=== PATIENT | male | born 1955 | race Caucasian/White ===

== ENCOUNTER 2024-10-20 17:45 | Inpatient (IN) | payer MEDICARE, SELFPAY ==
[2024-10-20] VITALS (9 sets, daily range): BP systolic 116–158; BP diastolic 65–106; BMI 28.1
[2024-10-20 13:24] LABS: ALT (SGPT) 37 U/L (0-50); AST (SGOT) 43 U/L (17-59); Albumin 3.9 g/dl (3.5-5.0); Alkaline Phosphatase 86 U/L (38-126); Blood Urea Nitrogen 21 mg/dl (9-20); Calcium 9.1 mg/dl (8.4-10.2); Carbon Dioxide 28 mmol/L (22-30); Chloride 102 mmol/L (98-107); Glucose 110 mg/dl (70-99); Potassium 4.4 mmol/L (3.5-5.1); Sodium 137 mmol/L (135-145); Total Bilirubin 0.8 mg/dl (0.2-1.3); Total Protein 6.7 g/dl (6.3-8.2); eGFR 49.47
[2024-10-20 13:31] LABS: Hemoglobin 15.3 g/dL (13.0-18.0); Mean Corpuscular Hgb 29.8 pg (27.0-31.0); Mean Corpuscular Volume 87.5 fL (80.0-94.0); Mean Platelet Volume 10.3 fL (7.4-10.4); Platelet Count 190 10^3/uL (130-400); Red Blood Cell Count 5.14 10^6/uL (4.70-6.10); Red Cell Dist. Width 14.2 % (11.5-14.5); White Blood Cell Count 7.8 10^3/uL (4.8-10.8)
[2024-10-20 13:39] LABS: Troponin I 0.621 ng/ml
--- NOTE | 2024-10-20 13:41 | ED.GENMED ---
History of Present Illness
General
Chief Complaint: Heart Rate Problem
Source: patient
Exam Limitations: none
Time Seen by Provider: 10/20/24 13:23
Nursing documentation reviewed up to this point in time: agreed with
History of Present Illness
History of Present Illness:
Patient is a 69-year-old male with history of bypass surgery 2012 presents to the ER for evaluation. Patient reports over the past 2 weeks he has had a lot of' cold symptoms, nasal congestion is felt very tired and fatigued..' He was tested for
flu and COVID both of which were negative. He went to his family doctor today for evaluation. He was told his EKG was normal and he presented to the ER. He denies any chest pain now. He reports that when he walks up and down the steps sometimes
will get' a twinge of pain in his chest.' He however has no complaints now. He denies any shortness of breath. He was a patient of Dr. Sarah.
Pt did take his ASA today..
Review of Systems
Review of Systems
Allergies reviewed?: Yes
All Other Systems: ROS reviewed and negative except as documented in HPI and ROS
Constitutional: Reports fatigue
EENT: Reports no symptoms
Respiratory: Reports no symptoms
Cardiac: Reports palpitations
ABD/GI: Reports no symptoms
Musculoskeletal: Reports no symptoms
Skin: Reports no symptoms
Neurological: Reports no symptoms
Psychiatric: Reports no symptoms
Phy Exam
General Physical Exam
General Presentation: no apparent distress
General age: appears stated age
General Skin: warm and dry
General Habitus: normal
General Mental: alert
General Hydration: appears well hydrated
Cardiovascular Exam
Cardiovascular Exam: regular rate/rhythm, no murmur and normal peripheral pulses
Pulmonary Exam
Pulmonary Exam: lungs clear and no respiratory distress
Neurological Exam
Neurological Exam: alert and oriented x3
Musculoskeletal Exam
Musculoskeletal Exam: full ROM
Skin Exam
Skin Exam: normal color and warm/dry
Psychiatric Exam
Psychiatric Exam: normal mood/affect
Course
Orders/Labs/Results
Orders:
Orders
10/20/24 12:42
Electrocardiogram (*1) Urgent
Reason for Study: Chest Pain
EKG- Treatment ONCE
10/20/24 13:04
Complete Blood Count/With Diff Urgent
Comprehensive Metabolic Panel Urgent
Troponin I Urgent
10/20/24 16:06
Chest [CR Chest - 2 Views ] Urgent
Comment:
Reason For Exam: chest pain
10/20/24 16:17
Heparin 4,000 units IV NOW STA
Heparin Protocol- PTT Orders As Directed
PTT per Heparin protocol: -Obtain CBC and baseline PTT - if not already collected.
-Obtain PTT 6 hours from start of infusion. Then, every 6 hours until 2 consecutive
PTT's are therapeutic. Then, PTT Daily.
-With each rate change, obtain PTT every 6 hours until 2 consecutive PTT's are
therapeutic. Then, PTT Daily.
Notify MD As Directed
Notify physician if: PTT is greater than or equal to 200.
10/20/24 16:30
Heparin 36399 Units/250 ml 25,000 units in 250 ml IV PER PROTOCOL
Weight to be used for heparin protocol in kilograms (kg):: 94
Protocol:: Cardiac Tx/Acute Coronary
PTT Goal Range to be used:: PTT 73 to 111 seconds
Order type:: Initial
INITIAL Infusion Dose (UNITS/KG/hr) & then follow protocol:: 12 units/kg/hr
Infusion Dose in UNITS/hr & then follow protocol (UNITS/hr):: 1,000
INFUSION RATE in mL/hr & then follow protocol (mL/hr):: 10
PTT less than or equal to 64 seconds:: Increase rate by 200 units/hr (+ 2 mL/hr)
PTT 64.1 to 72.9 seconds:: Increase rate by 100 units/hr (+ 1 mL/hr)
PTT 73 to 111 seconds:: Target Range. No change in rate.
PTT 111.1 to 130.9 seconds:: Decrease rate by 100 units/hr (- 1 mL/hr)
PTT 131 to 199.9 seconds:: HOLD for 1 hr. Then decrease rate by 200 units/hr (- 2 mL/hr)
PTT greater than or equal to 200 seconds:: HOLD for 2 hrs & Notify Provider. Then decrease by 200 units/hr (-
2 mL/hr)
Lab follow-up:: Each change, PTT q6h until 2 consecutive are therapeutic. Then PTT
daily.
10/20/24 16:31
PTT Urgent
Comment: Obtain baseline before beginning heparin infusion if not already collected
10/20/24 17:08
Admit/Transfer Patient As Directed
Co-Sign Provider:
Level of Care: Inpatient admission
Assign to:: IVU
Physician / Group: Karla Wilson
Diagnosis: chest pain, VERONICA
Reason for Hospitalization: chest pain, VERONICA
Expected length of stay greater than two midnights?: Yes
ELOS- Estimated Length of Stay in days: 3
I certify the patient meets the requirements for IP care: Yes
PRN Pain Medication Management As Directed
May give lesser potent ordered pain med per pt: Yes
preference::
Protocol:: Medication orders for pain may be administered in a
manner that supports deferring to patient preference
when the pt is:
- Requesting an ordered lesser potent pain medication.
Least to most potent pain medications are defined
as: acetaminophen < NSAID < tramadol < opioids
(morphine, oxycodone, hydromorphone).
- Requesting a lesser dose of the same medication IF
ORDERED.
- Requesting a less intrusive route of administration
if both routes are prescribed by the provider (PO <
IV).
10/20/24 17:10
Code Status As Directed
Resuscitation Status: Full Code
10/20/24 18:00
0.9% Sodium Chloride 500 ml [Nss] 500 ml IV 80 mls/hr
10/20/24 19:00
EKG [Electrocardiogram (*1)] Routine
Reason for Study: CAD
Troponin I Q6H
10/20/24 22:53
PTT Urgent
10/21/24 01:00
Troponin I Q6H
10/21/24 06:00
EKG [Electrocardiogram (*1)] IN AM
Reason for Study: CAD
Echo 2D MMode Color/Doppler IN AM
Reason for Study: abnormal troponin
Comment: PLEASE DO FIRST IN AM
NPO
Allow oral meds: Yes
Allow clear liquids: No
BMP [Basic Metabolic Panel] IN AM
Cardiovascular Evaluation IN AM
Hgba1c [Glycohemoglobin (HgbA1c)] IN AM
10/22/24 06:00
Complete Blood Count/No Diff Q2D
Comment: Notify MD if platelet count is <130,000 or decreases by 50% from baseline
10/24/24 06:00
Complete Blood Count/No Diff Q2D
Comment: Notify MD if platelet count is <130,000 or decreases by 50% from baseline
10/26/24 06:00
Complete Blood Count/No Diff Q2D
Comment: Notify MD if platelet count is <130,000 or decreases by 50% from baseline
10/28/24 06:00
Complete Blood Count/No Diff Q2D
Comment: Notify MD if platelet count is <130,000 or decreases by 50% from baseline
10/30/24 06:00
Complete Blood Count/No Diff Q2D
Comment: Notify MD if platelet count is <130,000 or decreases by 50% from baseline
11/01/24 06:00
Complete Blood Count/No Diff Q2D
Comment: Notify MD if platelet count is <130,000 or decreases by 50% from baseline
11/03/24 06:00
Complete Blood Count/No Diff Q2D
Comment: Notify MD if platelet count is <130,000 or decreases by 50% from baseline
11/05/24 06:00
Complete Blood Count/No Diff Q2D
Comment: Notify MD if platelet count is <130,000 or decreases by 50% from baseline
Abnormal Lab Results
10/20/24
13:04
Absolute Monos (auto) 0.7 H 10^3/uL
(0.1-0.6)
Monocytes % 9.5 H %
(1.7-9.3)
BUN 21 H mg/dl
(9-20)
Creatinine 1.5 H mg/dL
(0.7-1.3)
Glucose 110 H mg/dl
(70-99)
Troponin I 0.621 H* ng/ml
10/20/24 13:04
10/20/24 13:04
Vital Signs
Initial and Last Documented VS:
Initial Vital Signs
Temp Pulse Resp BP Pulse Ox
97.4 F 79 18 158/100 97
10/20/24 12:44 10/20/24 12:44 10/20/24 12:44 10/20/24 12:44 10/20/24 12:44
Last Documented Vital Signs
Temp Pulse Resp BP Pulse Ox
97.4 F 88 19 144/82 99
10/20/24 12:44 10/20/24 17:15 10/20/24 17:15 10/20/24 17:00 10/20/24 17:15
MDM/Problems Addressed
Differential Diagnosis Includes:
Not limited to unstable angina, anemia
MDM/Problems Addressed:
Patient is a 69-year-old male with past with history of bypass in 2012 has presented to the ER complaining of fatigue intermittently over the past several weeks has had mild twinges of chest pain with walking. Patient was sent by his family doctor
for EKG changes and symptoms. Patient presents with elevated troponin though no chest pain here in the ER. He is vital signs are stable he is nontoxic he is asymptomatic here. Case discussed with cardiology who will evaluate patient will admit to
the hospital service
*Radiology
Radiology exam reviewed: radiology read reviewed
*Pulse Oximetry
Patient hypoxic: no
*EKG
Interpreted by ED Provider?: Yes
Interpretation: abnormal
Heart Rate: 77
Rate: normal
Rhythm: sinus and PVC's
QRS Pattern: normal QRS
Ischemia: non-specific ST changes
*Critical Care Note
Total Time (30-74mins, 75-104mins- exclusive of procedures): Not Applicable
Patient Management
Discussion with other providers: Blood Collector (DR Peña )
ED Attending Note
-
Portions of this chart may have been created with voice recognition software.� Occasional wrong word or��sound alike� substitutions may have occurred due to the inherent limitations of voice recognition software.
Discharge Plan
Departure
Patient Disposition: Admit
Date of Disposition: 10/20/24
Time of Disposition: 16:07
Admit to: Telemetry
Admit to doctor: hospitalist
Presentation/result/management discussed w/ accepting MD/DO: Hospitalist
Patient with high blood pressure during this ER visit?: Yes
Condition: Fair
Covid-19: Not Applicable
Discharge Problem:
Chest pain, Elevated troponin
Interventions
Interventions:
*Risk Screen - Suicide Last Done: 10/20/24 12:44
*General Assessment Last Done: 10/20/24 12:44
*Neglect/Abuse Screening Last Done: 10/20/24 12:44
*ED- Fall Risk Assessment Last Done: 10/20/24 12:54
*ED COVID-19 Vaccine History Last Done: 10/20/24 12:44
ED- Cardiac Assessment Last Done: 10/20/24 12:54
ED- Pulmonary Assessment Last Done: 10/20/24 12:54
[2024-10-20 14:15] LABS: % Basophils 0.5 % (0-2); % Eosinophils 1.9 % (0-6); % Immature Granulocytes 0.3 % (0-0.5); % Lymphocytes 26.6 % (20.5-51.1); % Monocytes 9.5 % (1.7-9.3); % Neutrophils 61.2 % (42.2-75.2); Absolute Eosinophils 0.2 10^3/uL (0-0.7); Absolute Lymphocytes 2.1 10^3/uL (1.2-3.4); Absolute Monocytes 0.7 10^3/uL (0.1-0.6); Absolute Neutrophils 4.8 10^3/uL (1.4-6.5); Nucleated Red Blood Cells % 0 % (-)
--- NOTE | 2024-10-20 16:18 | CON.CAR ---
Addendum entered and electronically signed by Gerardo Peña MD 10/20/24 17:21:
I saw and examined the patient.
The SPA TECHNICIAN's note was reviewed and I agree with the note.
Comment: 69 y/o male (former Dr. Sarah patient) with ICM EF 40-40% (meds limited my intolerances), CAD with hx CABG 2011 (OLEARY-LAD, VG-OM1-PDA, VG occluded cath 2015), dyslipidemia who complains of several weeks of feeling like he has head
congestion. It began in as a headache and then developed into sinus congestion with a postnasal drip and total body aches. It was not resolving so after having a negative COVID/flu combo test at home he sought care at his PCP who sent him in for
evaluation. In addition to the symptoms, it seems they were worried because he complained of an episode of palpitations overnight. He said this was reminiscent of his preoperative time. Prior to his. At that time though, he knew he was in
trouble and he does not feel as bad currently. He does have some exertional chest twinges at times. These have been more present recently with less exertion. He never has chest pain at rest. He does not take nitroglycerin. The palpitations he
had last night worse sudden onset fast and self resolving. He also has symptoms of what he knows are PVCs at times. We were called because initial troponin is 0.6. On exam he is well-appearing in no apparent distress. Lungs are clear to
auscultation bilaterally. He has a regular rate and rhythm with a normal S1-S2 no murmur rubs or gallops were appreciated. EKG shows normal sinus rhythm with LVH and strain pattern and PVCs in the pattern of bigeminy. Total history is somewhat
confusing. No strong complaints of unstable symptoms suggestive of ACS, but has initial troponin of 0.6 and a lot of ectopy with a report of significant palpitations overnight. Main complaint is of congestion and total body aches. He has
extensive multivessel coronary artery disease. I wonder if he has some sort of infectious etiology leading to a type II TN. However, it is difficult to make that determination at this point. Would be cautious and start a heparin drip. Will
arrange for an echocardiogram first thing in the morning and trend troponins. If troponins continue to rise, he develops any new symptoms or echocardiogram shows worsening cardiomyopathy would then recommend cardiac catheterization. Remainder of
workup per medicine regarding his congestion and sinus symptoms. We will keep him n.p.o. after midnight and add him to the tentative cath scheduled for tomorrow.
Original Note:
Consultation
Consultation Request
Date/Time Consultation Requested: 10/20/24 1415
Date/Time Consultation Performed: 10/20/24 1530
Requesting Provider: Liset Bañuelos NP
Performing Provider: Tanja WOLF for Dr. Peña
Reason for Consultation: abnormal troponin
Medical History
-
Chief Complaint: congestion, fatigue
History of Present Illness:
69 y/o male (former Dr. Sarah patient) with ICM EF 40-40% (meds limited my intolerances), CAD with hx CABG 2011 (OLEARY-LAD, VG-OM1-PDA, VG occluded cath 2015), dyslipidemia who is here for evaluation from his PCP office. Briefly, he has had
congestion since August. He has felt tired and with achy legs. Overnight, he had palpitations, which made him nervous since he felt that before bypass, so he took aspirin 650 mg early this AM prior to arrival here. He also woke up sweaty. He
recently had chills. He took an OTC covid/flu test on Friday, which was negative. He gets chest tightness with exertion only, which is chronic, but worsened recently. Still no CP with rest. He is in no distress at the time of my assessment. Trop is
0.621. EKG is abnormal, but similar to OP 2022 EKG to my review, just with PVC's now. He specifically denies SOB, but reports his breathing isn't completely normal either.
Past Medical History
Past Medical History: CAD, CHF and Hypercholesterolemia
Social History
Tobacco: Non-Smoker
Family History
Family History: CAD (dad)
Allergies / Home Medications
Allergy/AdvReac Type Severity Reaction Status Date / Time
naproxen Allergy Rash Verified 10/20/24 12:48
�Medication �Instructions �Recorded �Confirmed �Type
allopurinol 300 mg tablet 300 mg PO DAILY Gout 04/22/16 10/20/24 History
aspirin 81 mg chewable tablet 81 mg PO DAILY Blood clot 04/22/16 10/20/24 History
prevention/tx
cholecalciferol (vitamin D3) 25 1,000 unit PO DAILY Supplement 04/22/16 10/20/24 History
mcg (1,000 unit) capsule (Vitamin
D3)
coenzyme Q10 200 mg capsule (Co 200 mg PO DAILY Supplement 04/22/16 10/20/24 History
Q-10)
rosuvastatin 10 mg tablet 10 mg PO DAILY High cholesterol 11/16/22 10/20/24 History
ascorbic acid (vitamin C) 500 mg 500 mg PO BID 10/20/24 10/20/24 History
tablet (Vitamin C)
emtricitabine 200 mg-tenofovir 1 tab PO DAILY 10/20/24 10/20/24 History
alafenamide fumarate 25 mg tablet
(Descovy)
Review of Systems
-
History Source: Patient
All other systems: Negative unless noted
Constitutional: Chills
Respiratory: Trouble Breathing (breathing not baseline, but technically no SOB per patient) and Other (congestion)
Cardiac: Chest Pain, Diaphoresis and Palpitations
Physical Exam
Vital Signs
Temp Pulse Resp BP Pulse Ox
97.4 F 73 0 129/85 99
10/20/24 12:44 10/20/24 14:30 10/20/24 14:30 10/20/24 14:00 10/20/24 14:30
Lab Results
10/20/24 13:04
10/20/24 13:04
Troponin I 0.621 ng/ml H* 10/20/24 13:04
Physical Exam
General: Well Developed, Well Nourished and No Apparent Distress
HEENT: Normocephalic and Anicteric
Respiratory: Clear and Non Labored Respirations
Cardiac: Regular Rhythm
Musculoskeletal: No Edema
Skin: Warm
Neuro: AO x 3
Psych: Calm
Impression / Plan
-
Abnormal troponin:
-concern for NSTEMI, which is threat to life- will initiate IV heparin, which requires intensive monitoring
-He took full dose aspirin early this AM per patient
-check lipids, A1C
-otherwise, trend to peak, follow EKG's, and update echo
-likely cath tomorrow- plan to see in AM first
CAD with hx CABG:
-continue ASA, statin
-check lipids, A1C
ICM EF 40-45%:
-not on GDMT due to intolerances per chart
-reassess echo
VERONICA:
-repeat in AM- last OP creat that I saw was 1.3
Data:
Cath 04/2016: 1: Anterolateral and apical hypokinesis with EF 41% 2: Severe [place] double vessel CAD with patent OLEARY�LAD and occluded SVG�OM3�RPDA grafts 3. The severe circumflex disease would likely be amenable to stenting should the patient
developed progressive anginal symptoms. The territory supplied by the large OM3 is protected by right to left collaterals and the disease in the [place] RCA is mild. Accordingly, medical therapy is a reasonable approach at this time. Continue
aggressive risk factor modification efforts.
Echo 07/07/22: Mildly reduced left ventricular systolic function. Left ventricular ejection fraction is 40-45%. Moderate to severe inferolateral and apical hypokinesis. No significant valvular disease.
Data Reviewed
-
EKG: Tracing Personally Visualized and interpreted (SR with PVC's, otherwise T wave inversions noted similar to previous)
Radiology: Other (CXR ordered and pending)
Medical Tests (Nuc Med, Echo etc): Report Reviewed by me
Labs: Labs Reviewed by me
--- NOTE | 2024-10-20 16:25 | HPS.HSE ---
Family Physician
-
Family Physician: Abelardo Sunshine
Chief Complaint
-
chest pain
History of Present Illness
Patient is a 69-year-old male with past medical history significant for CAD, hyperlipidemia, and gout who present to [facility] ED for evaluation following EKG at primary care provider. Patient reports that back in August he started with
cold like symptoms (congestion and increased fatigue). Since symptoms still were lingering earlier this week he took home flu/covid test and both were negative. With continued symptoms he called and made appointment with primary care provider for
this morning. At primary care today for continued cold like symptoms and what he describes as 'twinges of pain' in chest with walking was found to have changes on EKG and referred to ED for further evaluation. He does report waking this morning with
significant diaphoresis. Patient denies fever, cough, shortness of breath, nausea, vomiting, constipation, diarrhea or urinary symptoms. Reports taking Descovy for prophylaxis for current sexual relations.
Medical History
Past Medical History
Past Medical History: Reports Other
Additional Past Medical History:
CAD
hyperlipidemia
gout
Past Surgical History: Reports Other
Additional Past Surgical History:
CABG (2011)
prostate biopsy
Social History
Tobacco: Non-smoker
Alcohol: Occasional (glass of wine weekly)
Drug: None
Family History
Family History: Not pertinent
Allergies / Home Medications
Allergies reflects when Allergies were last updated in [employer].
Home Medications with original date entered in [employer]
Allergy/Medication List:
Allergies
Allergy/AdvReac Type Severity Reaction Status Date / Time
naproxen Allergy Rash Verified 10/20/24 12:48
Home Medications
allopurinol 300 mg tablet 300 mg PO DAILY Gout 04/22/16
aspirin 81 mg chewable tablet 81 mg PO DAILY Blood clot prevention/tx 04/22/16
cholecalciferol (vitamin D3) 25 mcg (1,000 unit) capsule (Vitamin D3) 1,000 unit PO DAILY Supplement 04/22/16
coenzyme Q10 200 mg capsule (Co Q-10) 200 mg PO DAILY Supplement 04/22/16
rosuvastatin 10 mg tablet 10 mg PO DAILY High cholesterol 11/16/22
ascorbic acid (vitamin C) 500 mg tablet (Vitamin C) 500 mg PO BID 10/20/24
emtricitabine 200 mg-tenofovir alafenamide fumarate 25 mg tablet (Descovy) 1 tab PO DAILY 10/20/24
Review of Systems
-
History Source: Patient
Constitutional: Reports No Symptoms
EENT: Reports No Symptoms
Respiratory: Reports No Symptoms
Cardiac: Reports Chest Pain and Diaphoresis
Abdomen/GI: Reports No Symptoms
: Reports No Symptoms
Musculoskeletal: Reports No Symptoms
Skin: Reports No Symptoms
Neurological: Reports No Symptoms
Endocrine: Reports No Symptoms
Hematologic/Lymphatic: Reports No Symptoms
Psych: Reports No Symptoms
Physical Exam
Vital Signs
Vital Signs
Temp Pulse Resp BP Pulse Ox
97.4 F 73 0 129/85 99
10/20/24 12:44 10/20/24 14:30 10/20/24 14:30 10/20/24 14:00 10/20/24 14:30
Physical Exam
General: Well Developed, Well Nourished, No Apparent Distress, Comfortable and Conversant
HEENT: NormoCephalic, Moist mucous membranes, Atraumatic, Steger Conjunctivae, Nose Appears Normal and Ears Appear Normal
Respiratory: Clear and Non Labored Respirations
Cardiac: S1/S2 and Regular Rhythm; No Murmur, Rub or Gallop
Breast: Deferred by me
GI: Soft, Non Tender, Non Distended and Normal Bowel Sounds; No Organomegaly
Rectal: Deferred by Provider
Genito-urinary: Deferred by me
Musculoskeletal: No Clubbing, No Cyanosis and No Edema
Skin: IV/Catheter Site; No Rash
Neuro: Awake, Alert, AO x 3 and Nonfocal/grossly intact
Psych: Calm and Intact Judgment/Insight
Laboratory Results
-
10/20/24 13:04
10/20/24 13:04
Laboratory Results
Total Bilirubin 0.8 mg/dl (0.2-1.3) 10/20/24 13:04
AST 43 U/L (17-59) 10/20/24 13:04
ALT 37 U/L (0-50) 10/20/24 13:04
Alkaline Phosphatase 86 U/L (38-126) 10/20/24 13:04
Troponin I 0.621 ng/ml H* 10/20/24 13:04
Data Reviewed
-
Medical Tests (Nuc Med, Echo, EKG etc): Report Reviewed by me (EKG: SINUS RHYTHM WITH FREQUENT , AND CONSECUTIVE PREMATURE VENTRICULAR COMPLEXES LEFT VENTRICULAR HYPERTROPHY WITH REPOLARIZATION ABNORMALITY ( R in aVL ) ABNORMAL ECG)
Lab Data: Labs Reviewed by me (BUN 21, Creat 1.5, trop 0.621)
Impression/Plan
-
IMPRESSION/PLAN:
#chest pain/EKG changes
#CAD
s/p CABG 2011
EKG: SINUS RHYTHM WITH FREQUENT , AND CONSECUTIVE PREMATURE VENTRICULAR COMPLEXES
LEFT VENTRICULAR HYPERTROPHY WITH REPOLARIZATION ABNORMALITY ( R in aVL )
ABNORMAL ECG
patient states intermittent 'twinges' of chest pain with exertion
- Admit to IVU
- Cardiology consult
- Heparin gtt
- trend troponin
- NPO at midnight for possible cath tomorrow
#acute kidney injury
possibly 2/2 Descovy (will hold)
- IVF
- monitor BMP
#hyperlipidemia
- continue rosuvastatin
#gout
- continue allopurinol
Code status: full code
DVT prophylaxis: heparin gtt
[2024-10-20 16:48] LABS: APTT 23.4 Sec (23.4-35.0)
[2024-10-20] MEDS: HEPARIN 25000 UNITS/250 ML IV (16:53)
[2024-10-20] MEDS: HEPARIN 4000 UNITS IV (16:53)
--- NOTE | 2024-10-20 17:22 | W.PN.UPDATE ---
Update Note
Progress Note Update
This is an addendum to the H&P written by Anna Holm on 10/20/2024. Patient seen examined independent with COP [employer]ER.
69-year-old male past medical history of CAD status post CABG in 2011, cardiomyopathy with EF of 40 to 45%, hypercholesteremia, gout, presenting with several weeks of cold-like symptoms, congestion, body aches, brain fog. Had some palpitations and
sweating last night. Had an appointment with primary care physician today and found to have abnormal EKG sent to the emergency room. Sometimes with twinge of chest pain when going up the steps over the past 2 weeks. No chest pain currently.
Patient is taking Descovy for HIV prophylactically for current relationship.
Labs show VERONICA with creatinine 1.5
EKG shows sinus rhythm with frequent PVCs, nonspecific T wave inversions, repolarization abnormalities. Troponin of 0.6. Chest x-ray does not appear to show any abnormalities although report pending.
Patient with NSTEMI. Patient with mild URI symptoms, postnasal drip. Check COVID and flu.
Trend troponins, n.p.o. past midnight for potential catheterization tomorrow. Check A1c and lipid panel, aspirin started, heparin drip. Cardiology consulted.
VERONICA seems to be secondary to Descovy. Gentle IV fluids 500 cc total, hold Descovy which patient is agreeable to.
[2024-10-20] MEDS: NSS 500 IV (18:01)
--- NOTE | 2024-10-20 19:29 | PTCARENOTE ---
Pt admitted from ED. Pt denies any discomfort. Heparin and IV fluids infusing. Telemetry shows sinus rhythm with very frequent PVC's couplets, triplets. Pt states he does not feel them. Potassium 4.4.
[2024-10-20] MEDS: VITAMIN C 500 MG PO (19:50)
[2024-10-20 20:32] LABS: Troponin I 0.363 ng/ml
--- NOTE | 2024-10-20 23:35 | PTCARENOTE ---
Received patient at change of shift. SR with PVCs on the monitor, HR in 80s. Heparin running as per protocol. No chest pain at this time. Patient verbalizes understanding of NPO at midnight. No complaints from pt at this time, call crokcer within
reach.
[2024-10-20 23:47] LABS: APTT 33.5 Sec (23.4-35.0)
[2024-10-21] VITALS (25 sets, daily range): BP systolic 54–153; BP diastolic 33–97
[2024-10-21 06:15] LABS: APTT 37.1 Sec (23.4-35.0)
[2024-10-21 06:17] LABS: Blood Urea Nitrogen 18 mg/dl (9-20); Calcium 8.9 mg/dl (8.4-10.2); Carbon Dioxide 24 mmol/L (22-30); Chloride 106 mmol/L (98-107); Estimated Creatinine Clearance 60 ml/min; Glucose 96 mg/dl (70-99); HDL Cholesterol 30 mg/dl; LDL Cholesterol, Calculated 77 mg/dl; Magnesium 2.1 mg/dl (1.6-2.3); Potassium 4.2 mmol/L (3.5-5.1); Sodium 136 mmol/L (135-145); Total Cholesterol 127 mg/dl (50-199); Triglyceride 104 mg/dl (10-149); Very Low Density Lipoprotein 20 mg/dl (0-30); eGFR > 60.00
[2024-10-21] MEDS: LOW STRENGTH ASPIRIN 81 MG PO (07:55)
[2024-10-21] MEDS: ZYLOPRIM 300 MG PO (07:55)
[2024-10-21] MEDS: VITAMIN D3 (cholecalciferol) 25 MCG PO (07:55)
[2024-10-21] MEDS: CRESTOR 10 MG PO (07:55)
[2024-10-21] MEDS: VITAMIN C 500 MG PO ×2 (07:55→20:36)
[2024-10-21 09:20] LABS: Glycohemoglobin (HgbA1c) 5.2 % (4.0-5.6)
--- NOTE | 2024-10-21 10:18 | W.PN.HOSP.TC ---
Today's Communication/Plan
-
LHC
Assessment / Plan
Assessment / Plan
Impression:
Concern for acute coronary syndrome/non-STEMI
CAD with history of CABG
Ischemic cardiomyopathy.
VERONICA.
Plan
Concern for acute coronary syndrome/NSTEMI
Patient presents with 2 weeks of chest burning sensation occasionally with activity.
Noted troponin elevation peaked at 0.6 (could be part of decreased renal clearance with VERONICA)
ECG with nonspecific changes
Known history of CAD with CABG and ischemic cardiomyopathy.
Initiated on IV heparin.
Echo pending.
Plan is for left heart catheterization
On aspirin and rosuvastatin SENIOR JAVASCRIPT DEVELOPER
Ischemic cardiomyopathy with LVEF of 40-45%.
No evidence for volume overload.
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
Updated echocardiogram pending.
Acute kidney injury.
Creatinine 1.5.
Reports no retention.
Creatinine trending down with IV fluid bolus.
Hold Descovy (has been taking it for about 3 weeks for prophylaxis)
Reports upper respiratory symptoms/congestion since August.
Reportedly tested negative for influenza and COVID as outpatient.
Monitor closely
Consider HIV testing
Anticipated Discharge: 24 - 48 hours
Subjective/Interval History
-
Date of Service: October 21, 2024
Objective Data
-
Labs:
Laboratory Results
10/20/24 10/21/24 10/21/24
23:27 05:39 13:05
APTT 33.5 37.1 H Pending
Sodium 136
Potassium 4.2
Chloride 106
Carbon Dioxide 24
BUN 18
Creatinine 1.2
Glucose 96
Calcium 8.9
Vital Signs:
Vital Signs
Temp Pulse Resp BP Pulse Ox
98.9 F 73 20 130/77 96
10/21/24 06:46 10/21/24 07:45 10/21/24 06:46 10/21/24 06:47 10/21/24 08:10
Physical Exam
-
General: Well Developed and No Apparent Distress
HEENT: Normocephalic, Atraumatic and Moist Mucous Membranes
Respiratory: Clear to Auscultation
Cardiac: Regular Rhythm and S1/S2; Negative Murmur, Rub or Gallop
GI: Soft, Nontender, Nondistended and Normal Bowel Sounds; Negative Organomegaly
Rectal: Deferred by Provider
Musculoskeletal: No Clubbing, No Cyanosis and No Edema
Skin: Negative Rash
Neuro: Nonfocal/Grossly Intact
--- NOTE | 2024-10-21 10:21 | W.PN.CD ---
Today's Communication / Plan
-
proceed to cath
echo
intensify statin
Impression / Plan
-
NSTEMI:
-concern for NSTEMI as now he notes more frequent rest cp that feels like burning,
- which is threat to life- will initiate IV heparin, which requires intensive monitoring and will move forward to cardiac cath
- will intensify statin as LDL 77 goal <55
-check echo
CAD with hx CABG:
-continue ASA, statin
-Lipids out of control A1C
ICM EF 40-45%:
-not on GDMT due to intolerances per chart
-reassess echo
VERONICA:
-improve
Subjective:
he has had some cp overnight thinks it has been happening more lately
Data:
Cath 04/2016: 1: Anterolateral and apical hypokinesis with EF 41% 2: Severe [place] double vessel CAD with patent OLEARY�LAD and occluded SVG�OM3�RPDA grafts 3. The severe circumflex disease would likely be amenable to stenting should the patient
developed progressive anginal symptoms. The territory supplied by the large OM3 is protected by right to left collaterals and the disease in the [place] RCA is mild. Accordingly, medical therapy is a reasonable approach at this time. Continue
aggressive risk factor modification efforts.
Echo 07/07/22: Mildly reduced left ventricular systolic function. Left ventricular ejection fraction is 40-45%. Moderate to severe inferolateral and apical hypokinesis. No significant valvular disease.
Physical Exam
Vital Signs/Labs
Vital Signs
Temp Pulse Resp BP Pulse Ox
98.9 F 73 20 130/77 96
10/21/24 06:46 10/21/24 07:45 10/21/24 06:46 10/21/24 06:47 10/21/24 08:10
10/20/24 10/21/24 10/22/24
06:59 06:59 06:59
Actual Weight 91.2 kg
10/20/24 13:04
10/21/24 05:39
APTT 37.1 Sec (23.4-35.0) H 10/21/24 05:39
Magnesium 2.1 mg/dl (1.6-2.3) 10/21/24 05:39
Triglycerides 104 mg/dl (10-149) 10/21/24 05:39
LDL Cholesterol, Calc 77 mg/dl 10/21/24 05:39
VLDL Cholesterol, Calc 20 mg/dl (0-30) 10/21/24 05:39
HDL Cholesterol 30 mg/dl 10/21/24 05:39
LAB Results
10/20/24 10/20/24
: 19:45
Troponin I 0.621 H* 0.363 H* D
Physical Exam
Constitutional: No acute distress
Cardiovascular: Rhythm & rate is regular, Pedal edema is absent, JVD pressure is normal, Systolic murmur absent and Diastolic murmur absent
Respiratory: Respiratory effort normal, Lungs clear to auscul., Wheeze Absent, Crackles Absent and Rhonchi Absent
Neuro/Psych: AO x 3
Data Reviewed
-
Date of Service: October 21, 2024
Medical Decision Making: Review of Case with other Provider (Dr Porter will proceed to cath)
EKG: Other (sinus with pvcs)
--- NOTE | 2024-10-21 10:43 | CARDSERVLU ---
Echocardiogram with [facility] completed after protocol screening completed. Allergies verified.
Patent IV site: _Left antecubital site clear___
IV site flushed with 0.9% NaCl pre and post administration.
Diluted bolus method utilized to enhance visualization of ventricular lyle.
Total volume given: __3__ mL
Patient tolerated all procedures well without complications.
--- NOTE | 2024-10-21 12:10 | CM ---
spoke to pt in room, he is prev indep, lives in [place] at [address] in a one story apt with no step [facility]. he denies any dc planning needs or dme's. plan is for dc to home when medically stable.
[2024-10-21 13:24] LABS: APTT 61.1 Sec (23.4-35.0)
[2024-10-21 15:06] LABS: ACT-LR - POC 314 Seconds (116-155)
[2024-10-21] MEDS: NSS 1000 IV (15:30)
--- NOTE | 2024-10-21 15:32 | ITS.CL.CATH ---
Automatic Profile Shaper Operator - Catheterization
Cardiac Catheterization
Procedure Report:
CARDIAC CATHETERIZATION REPORT
Date of Procedure: 10/21/2024
Referring: Sharon Peña M.D.
INDICATION: Troponin elevation, known coronary artery disease.
PROCEDURE:
1. Left heart catheterization.
2. Coronary angiography.
3. Bypass angiography.
A total of 49 minutes of procedural/moderate sedation was utilized. An independent director of medical staff services was present to assist with and help manage the patient's level of consciousness and physiologic status.
ACCESS:
1. 6 Spanish right common femoral artery using a modified Seldinger technique with a micropuncture kit under ultrasound guidance. Ultrasound image obtained.
CATHETERS:
1. 5 Spanish JL 4.
2. 5 Spanish JR4.
3. 5 Spanish MOISÉS.
4. 6 Spanish JR4 guiding catheter.
HEMODYNAMIC DATA
Weight (kg): 91.2
AO (s/d/x, mmHg): 150/82/102
LV (s/x mmHg): 150/10
LEFT VENTRICULOGRAPHY: Not performed.
CORONARY ANGIOGRAPHY
Dominance: Right.
Left Main: Normal size, bifurcating vessel. There is no coronary artery disease.
LAD: Normal size vessel giving rise to 1 significant diagonal. The artery is chronically totally occluded in its midportion immediately after the origin of D1. The distal LAD is supplied by patent OLEARY graft.
Ramus: Congenitally absent.
Circumflex: Normal size vessel that gives rise to 3 obtuse marginals. OM1 and OM 2 are small, vestigial vessels. OM 3 is a substantial vessel supplying the inferolateral wall. The left circumflex is chronically totally occluded in the AV groove
portion immediately distal to the third obtuse marginal, supplied by collaterals from the RCA. There are tandem 90% lesions in the mid circumflex leading into OM 3. These appear unchanged from prior angiography.
RCA: Large size, dominant vessel with a substantial posterolateral arcade. There is a 50% lesion in the proximal RCA. There is a longer, 40% lesion in the mid RCA. Epicardial collaterals are seen supplying the AV groove circumflex.
BYPASS GRAFT ANGIOGRAPHY
OLEARY to LAD: Normal size graft with end-to-side anastomosis to the mid LAD. There is no evidence of stenosis or graft degeneration.
SVG to OM 3 to RPDA: Not injected. Known to be occluded at its origin.
INTERVENTION(S)
1. Successful IFR of the sequential 50% proximal RCA lesion and 40% mid RCA lesion, demonstrating nonocclusive disease (IFR = 0.93).
Narrative:
The decision was made to perform physiologic testing. The diagnostic catheter was removed over a wire and exchanged for a(n) 6 Spanish JR4 guiding catheter. The guiding catheter was advanced into the ascending aorta and seated in the right coronary
artery. Additional heparin was given to obtain an ACT greater than 250 seconds. An iFR wire was zeroed outside of the body, then inserted into the guiding sheath. The wire was advanced and the transducer was normalized just outside of the guiding
catheter tip. The wire was advanced into the distal RCA. Three iFR measurements were taken. The lesion was determined to be nonocclusive (0.93).
Closure Device: 6 Spanish Angio-Seal for the right common femoral artery.
Radiation (mGy): 406.16
DAP (cm2.Gy): 32.0005
Fluoroscopy time (minutes): 8.0
CONCLUSIONS
1. Right dominant circulation with a chronic occlusion of the mid LAD, a chronic total occlusion of the distal circumflex after the origin of OM 3 supplied by right to left collaterals, tandem 90% lesions in the mid circumflex and the origin of OM
3, unchanged from prior cardiac catheterization, and tandem, nonocclusive 50% proximal RCA and 40% mid RCA lesions (IFR = 0.93), status post prior bypass (patent OLEARY to mid LAD, occluded sequential SVG to OM 3 to RPDA).
2. Normal filling pressures (LVEDP = 10 mmHg at 91.2 kg).
RECOMMENDATIONS:
1. Expectant management after cardiac catheterization via right femoral approach.
2. Limited weight bearing for one week.
3. Aggressive secondary prevention with high-dose, high potency statin. Goal LDL <55.
4. OMT/GDMT as hemodynamics will tolerate.
5. Consider empiric PPI treatment for possible GERD.
Copy to: Sharon Peña M.D., Abelardo Sunshine M.D., Diony Porter M.D.
Toy Sam DO, FACC, FACP
--- NOTE | 2024-10-21 19:35 | PTCARENOTE ---
Pt had cardiac cath left radial access was attempted , used left femoral artery. Pt denied any discomfort post cardiac cath, no sign of bleeding or hematoma at either access site. Pt off bedrest at 18:30, he went bathroom and sat on toilet. At 18:45
pt reported discomfort in his right groin. Pt put back in bed, no hematoma noted initially but within 5 minutes 10cm X 2cm hematoma was present. Manual pressure applied for 10 minutes. Pt started yawning, sweating, vomited. BP 54/33, IV fluids given
and pt improved to BP @120/70. Hematoma resolved completely. Pt then reported an ocular migraine with 'flashing lights' ( he states gets them) which resolved. notified , pt remaining on bedrest with close monitoring of vital signs and right
groin. Telemetry shows sinus rhythm with frequent PVC's couplets and triplets.
--- NOTE | 2024-10-21 23:45 | PTCARENOTE ---
Received patient at change of shift. SR with PVCs on the monitor, HR in the 70s. Patient rested in bed following hematoma and low BPS. R groin dressing CDI, groin is soft. BPs now 130s/80s. No complaints from pt at this time, call crocker within reach.
[2024-10-22 04:14] VITALS: BP 115/80
[2024-10-22 04:56] LABS: Hematocrit 37.8 % (39.0-52.0); Hemoglobin 13.1 g/dL (13.0-18.0); Mean Corp Hgb Conc. 34.7 g/dL (33.0-37.0); Mean Corpuscular Hgb 29.8 pg (27.0-31.0); Mean Corpuscular Volume 86.1 fL (80.0-94.0); Mean Platelet Volume 10.4 fL (7.4-10.4); Platelet Count 182 10^3/uL (130-400); Red Blood Cell Count 4.39 10^6/uL (4.70-6.10); White Blood Cell Count 6.5 10^3/uL (4.8-10.8)
[2024-10-22 05:18] LABS: Blood Urea Nitrogen 18 mg/dl (9-20); Calcium 8.9 mg/dl (8.4-10.2); Carbon Dioxide 19 mmol/L (22-30); Chloride 104 mmol/L (98-107); Estimated Creatinine Clearance 66 ml/min; Glucose 97 mg/dl (70-99); Potassium 4.3 mmol/L (3.5-5.1); Sodium 134 mmol/L (135-145); eGFR > 60.00
[2024-10-22 06:51] VITALS: BP 118/70
--- NOTE | 2024-10-22 07:52 | W.PN.CD ---
Today's Communication / Plan
-
Start Imdur and pantoprazole
R groin u/s r/o aneurysm
Likely d/c after we will arrange follow up
Impression / Plan
-
NSTEMI:
-No intervention from cath yesterday
- will intensify statin as LDL 77 goal <55
-Echo similar to prior
- will start Imdur 30 and pantoprazole
CAD with hx CABG:
-continue ASA, statin
-increased rosuvastatin to 20
ICM EF 40-45%:
-not on GDMT due to intolerances per chart
-echo below
- did not tolerate coreg/metop in past
- start on Imdur
VERONICA:
-improve
Subjective:
Vagaled last night with R groin hematoma, soft this AM feeling better
Data:
Echo: CONCLUSIONS
Mildly dilated LV with mildly reduced systolic function.
LVEF is 40-45% by visual estimation with inferolateral and apical hypokinesis.
Mild concentric LVH. Stage I diastolic dysfunction suggestion of abnormal
relaxation.
Normal right ventricular size and function.
No significant valvular disease.
Insufficient TR for estimation of PASP.
Compared to prior from June 06, 2022, no significant change.
Cath October 2024: CONCLUSIONS
1. Right dominant circulation with a chronic occlusion of the mid LAD, a chronic total occlusion of the distal circumflex after the origin of OM 3 supplied by right to left collaterals, tandem 90% lesions in the mid circumflex and the origin of OM
3, unchanged from prior cardiac catheterization, and tandem, nonocclusive 50% proximal RCA and 40% mid RCA lesions (IFR = 0.93), status post prior bypass (patent OLEARY to mid LAD, occluded sequential SVG to OM 3 to RPDA).
2. Normal filling pressures (LVEDP = 10 mmHg at 91.2 kg).
Cath 04/2016: 1: Anterolateral and apical hypokinesis with EF 41% 2: Severe [place] double vessel CAD with patent OLEARY�LAD and occluded SVG�OM3�RPDA grafts 3. The severe circumflex disease would likely be amenable to stenting should the patient
developed progressive anginal symptoms. The territory supplied by the large OM3 is protected by right to left collaterals and the disease in the [place] RCA is mild. Accordingly, medical therapy is a reasonable approach at this time. Continue
aggressive risk factor modification efforts.
Echo 07/07/22: Mildly reduced left ventricular systolic function. Left ventricular ejection fraction is 40-45%. Moderate to severe inferolateral and apical hypokinesis. No significant valvular disease.
Physical Exam
Vital Signs/Labs
Vital Signs
Temp Pulse Resp BP Pulse Ox
99.3 F 75 20 118/70 94
10/22/24 06:52 10/22/24 07:45 10/22/24 06:52 10/22/24 06:51 10/22/24 06:52
10/21/24 10/22/24 10/23/24
06:59 06:59 06:59
Actual Weight 201 lb 0.985 oz
10/22/24 04:20
10/22/24 04:20
APTT Cancelled 10/21/24 19:40
Magnesium 2.1 mg/dl (1.6-2.3) 10/21/24 05:39
Triglycerides 104 mg/dl (10-149) 10/21/24 05:39
LDL Cholesterol, Calc 77 mg/dl 10/21/24 05:39
VLDL Cholesterol, Calc 20 mg/dl (0-30) 10/21/24 05:39
HDL Cholesterol 30 mg/dl 10/21/24 05:39
LAB Results
10/20/24 10/20/24
13:04 19:45
Troponin I 0.621 H* 0.363 H* D
Physical Exam
Constitutional: No acute distress and Comfortable
EENT: Anicteric
Cardiovascular: Rhythm & rate is regular
Respiratory: Respiratory effort normal and Lungs clear to auscul.
GI: Soft
Neuro/Psych: Alert, Oriented and AO x 3
Other: Cath Site (soft )
Data Reviewed
-
Date of Service: October 22, 2024
Medical Decision Making: Reviewed Test Results
EKG: Tracing Personally Visualized and interpreted (sr with PVCs)
Echo: Tracing Personally Visualized and interpreted
Labs: Labs Reviewed by me
[2024-10-22] MEDS: VITAMIN D3 (cholecalciferol) 25 MCG PO (08:41)
[2024-10-22] MEDS: VITAMIN C 500 MG PO (08:41)
[2024-10-22] MEDS: LOW STRENGTH ASPIRIN 81 MG PO (08:41)
[2024-10-22] MEDS: ZYLOPRIM 300 MG PO (08:41)
[2024-10-22] MEDS: PROTONIX 40 MG PO (08:42)
[2024-10-22] MEDS: IMDUR (EXTENDED RELEASE) 30 MG PO (08:42)
--- NOTE | 2024-10-22 10:05 | VASLABRESULT ---
Preliminary VascularLab Result
- -
preliminary results of right groin ultrasound: negative for psuedoaneurysm. no hematoma seen. no AVF seen. Normal flow seen in CFV and PIG BREEDER. Final report to follow by Dr. Mane Mahajan.
[2024-10-22 11:09] VITALS: BP 126/64
--- NOTE | 2024-10-22 13:16 | W.DS.TRANS ---
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
-
Discharge Instructions:
Discharge Diagnosis/Procedures Cardiac cath
Diet Low Cholesterol
Driving Restrictions No driving for 24 hours
Instructions:
Stand-Alone Forms: DC Instructions- Cath/EP Lab
Changes to Home Medications: Yes
Discharge Medications:
DC Medications w/original date entered in [facility]
allopurinol 300 mg tablet 300 mg PO DAILY Gout 04/22/16
aspirin 81 mg chewable tablet 81 mg PO DAILY Blood clot prevention/tx 04/22/16
cholecalciferol (vitamin D3) 25 mcg (1,000 unit) capsule (Vitamin D3) 1,000 unit PO DAILY Supplement 04/22/16
coenzyme Q10 200 mg capsule (Co Q-10) 200 mg PO DAILY Supplement 04/22/16
ascorbic acid (vitamin C) 500 mg tablet (Vitamin C) 500 mg PO BID Supplement 10/20/24
emtricitabine 200 mg-tenofovir alafenamide fumarate 25 mg tablet (Descovy) 1 tab PO DAILY Infection 10/20/24
arginine 1,000 mg-B12 16.6 mcg-folic acid 66.6 mcg-B6 3.3 mg tablet (L-Arginine GonnaBe's Pinshape) 1 tab PO BID 10/22/24
isosorbide mononitrate 30 mg tablet,extended release 24 hr 30 mg PO DAILY #30 tabs 10/22/24
pantoprazole 40 mg tablet,delayed release 40 mg PO DAILY #30 tabs 10/22/24
rosuvastatin 20 mg tablet 20 mg PO DAILY #30 tabs 10/22/24
Home Medication Changes
Initiated on Imdur.
Statin dose increased
Pending Results: No
--- NOTE | 2024-10-22 14:38 | PTCARENOTE ---
Pt had ultrasound of right groin, preliminary report states no abnormal findings . Pt seen by Mona and German. Telemetry and IV device removed. Discharge instructions reviewed with pt regarding medications and their possible side effects,
wound care, activity and driving restrictions, reporting cares and concerns and follow up appt's. Very good understanding verbalized. Pt escorted out via wheelchair and discharged to home.
== END 2024-10-22 14:35 | disposition home or self-care (01) | DRG 281 ==
LOC: IVU 17:45
PROVIDERS: Internal Medicine Cardiovascular Disease; Nurse Practitioner; Nurse Practitioner Adult Health; ADMITTING PHYSICIAN Hospitalist; ATTENDING PHYSICIAN Internal Medicine; CONSULT PHYSICIAN Internal Medicine Cardiovascular Disease; EMERGENCY PHYSICIAN Emergency Medicine; FAMILY PHYSICIAN Family Medicine
PROC: B2121ZZ Fluoroscopy of Single Coronary Artery Bypass Graft using Low Osmolar Contrast (ICD-10-PCS; 2024-10-21)
PROC: 4A023N7 Measurement of Cardiac Sampling and Pressure, Left Heart, Percutaneous Approach (ICD-10-PCS; 2024-10-21)
PROC: B2111ZZ Fluoroscopy of Multiple Coronary Arteries using Low Osmolar Contrast (ICD-10-PCS; 2024-10-21)
PROC: 4A033BC Measurement of Arterial Pressure, Coronary, Percutaneous Approach (ICD-10-PCS; 2024-10-21)
PROC: B2181ZZ Fluoroscopy of Left Internal Mammary Bypass Graft using Low Osmolar Contrast (ICD-10-PCS; 2024-10-21)
DX: I21.4 Non-ST elevation (NSTEMI) myocardial infarction (principal); N17.9 Acute kidney failure, unspecified; I25.10 Atherosclerotic heart disease of native coronary artery without angina pectoris; Z95.1 Presence of aortocoronary bypass graft; I25.5 Ischemic cardiomyopathy; E78.00 Pure hypercholesterolemia, unspecified; M10.9 Gout, unspecified; Z88.6 Allergy status to analgesic agent; Z79.82 Long term (current) use of aspirin; I49.3 Ventricular premature depolarization; Z82.49 Family history of ischemic heart disease and other diseases of the circulatory system; I50.9 Heart failure, unspecified; Z79.899 Other long term (current) drug therapy
CPT/HCPCS: 71046; 80048; 80053; 80061; 83036; 83735; 84484; 85025; 85027; 85347; 85730; 93005; 93306; 93459; 93799; 93926; 96361; 96365; 96366; 99152; 99153; 99285; C1760; C1769; C1894; Q9950; Q9967

== ENCOUNTER 2025-05-03 06:27 | Day surgery (SDC) | payer MEDICARE, SELFPAY | END 2025-05-03 10:59 | disposition home or self-care (01) | LOC: GI 06:27 | PROVIDERS: ATTENDING PHYSICIAN Student in an Organized Health Care Education/Training Program | DX: Z12.11 Encounter for screening for malignant neoplasm of colon (principal); D12.3 Benign neoplasm of transverse colon; K63.5 Polyp of colon; K57.30 Diverticulosis of large intestine without perforation or abscess without bleeding; K62.1 Rectal polyp; K20.90 Esophagitis, unspecified without bleeding; K22.89 Other specified disease of esophagus; R12 Heartburn; Z86.0100 Personal history of colon polyps, unspecified; Z13.810 Encounter for screening for upper gastrointestinal disorder | CPT/HCPCS: 45385; 45380; 88305 ==